=== PATIENT | female | born 1955 | race Caucasian/White ===

== ENCOUNTER 2018-06-08 11:54 | Emergency (ER) | payer MEDICAID ==
[~2018-06-08] VITALS: Ht 157.5 cm; Wt 61.1 kg
[2018-06-08 12:14] VITALS: BP 172/83; PULSE 82; RESP 18; Ht 157.5 cm; Wt 61.1 kg
[2018-06-08] MEDS ORDERED: ONDANSETRON (ODT) 4 MG TAB ODT STA (15:02)
[2018-06-08] MEDS ORDERED: MECLIZINE 12.5 MG TAB PO ONE (15:30)
[2018-06-08] MEDS ORDERED: MECL-77 PO (17:02)
[2018-06-08] MEDS ORDERED: ONDA4TAB14 PO (17:02)
--- NOTE | 2018-06-08 17:04 | ERD ---
ER Documentation Chief Complaint Chief Complaint states blood glucose 240 at home. ROS All systems reviewed and are negative except as per history of present illness. Medications Home Meds Active Scripts Ondansetron (Ondansetron Odt) 4 Mg Tab.rapdis, 4 MG PO Q6H PRN for NAUSEA AND/OR VOMITING, #15 TAB Prov:CASSANDRA ARIAS DO 06/08/18 Meclizine Hcl* (Meclizine Hcl*) 25 Mg Tablet, 12.5 MG PO Q8H PRN for DIZZINESS, #30 TAB Prov:CASSANDRA ARAIS DO 06/08/18 Allergies Allergies: Coded Allergies: No Known Allergy (Unverified , 06/08/18) PMhx/Soc Medical and Surgical Hx: pt denies Surgical Hx Hx Miscellaneous Medical Probl: Yes (DM,HTN) Hx Alcohol Use: No Hx Substance Use: No Hx Tobacco Use: No Smoking Status: Never smoker Physical Exam Vitals Vital Signs Date Temp Pulse Resp B/P (MAP) Pulse Ox O2 O2 Flow FiO2 Time Delivery Rate 06/08/18 98.4 82 18 172/83 96 12:14 (112) Physical Exam Const: No acute distress Head: Atraumatic Eyes: Normal Conjunctiva ENT: Normal External Ears, Nose and Mouth. Neck: Full range of motion. No meningismus. Resp: Clear to auscultation bilaterally Cardio: Regular rate and rhythm, no murmurs Abd: Soft, non tender, non distended. Normal bowel sounds Skin: No petechiae or rashes Back: No midline or flank tenderness Ext: No cyanosis, or edema Neur: Awake and alert Psych: Normal Mood and Affect Result Diagram: 06/08/18 1513 06/08/18 1513 Results 24 hrs Laboratory Tests Test 06/08/18 15:11 06/08/18 15:13 Bedside Glucose 207 mg/dL White Blood Count 7.0 10^3/ul Red Blood Count 4.48 10^6/ul Hemoglobin 13.9 g/dl Hematocrit 40.7 % Mean Corpuscular Volume 90.8 fl Mean Corpuscular Hemoglobin 31.0 pg Mean Corpuscular Hemoglobin Concent 34.2 g/dl Red Cell Distribution Width 11.8 % Platelet Count 304 10^3/UL Mean Platelet Volume 10.1 fl Immature Granulocytes % 0.300 % Neutrophils % 52.5 % Lymphocytes % 37.9 % Monocytes % 7.0 % Eosinophils % 2.0 % Basophils % 0.3 % Nucleated Red Blood Cells % 0.0 /100WBC Immature Granulocytes # 0.020 10^3/ul Neutrophils # 3.7 10^3/ul Lymphocytes # 2.7 10^3/ul Monocytes # 0.5 10^3/ul Eosinophils # 0.1 10^3/ul Basophils # 0.0 10^3/ul Nucleated Red Blood Cells # 0.0 10^3/ul Sodium Level 136 mmol/L Potassium Level 4.4 mmol/L Chloride Level 98 mmol/L Carbon Dioxide Level 28 mmol/L Anion Gap 10 Blood Urea Nitrogen 15 mg/dl Creatinine 0.34 mg/dl Est Glomerular Filtrat Rate mL/min > 60 mL/min Glucose Level 224 mg/dl Calcium Level 9.9 mg/dl Total Bilirubin 0.2 mg/dl Direct Bilirubin 0.00 mg/dl Indirect Bilirubin 0.2 mg/dl Aspartate Amino Transf (AST/SGOT) 18 IU/L Alanine Aminotransferase (ALT/SGPT) 13 IU/L Alkaline Phosphatase 111 IU/L Total Protein 8.0 g/dl Albumin 4.3 g/dl Globulin 3.70 g/dl Albumin/Globulin Ratio 1.16 Current Medications Medications Dose Sig/Curt Start Time Status Last (Trade) Ordered Route PRN Stop Time Admin Dose Reason Admin Meclizine 12.5 mg ONCE ONCE 06/08/18 DC 06/08/18 HCl PO 15:30 15:08 (Antivert) 06/08/18 15:31 Ondansetron 4 mg ONCE STAT 06/08/18 DC 06/08/18 HCl (Zofran ODT 15:02 15:08 Odt) 06/08/18 15:03 Departure Diagnosis: Primary Impression: Dizziness Additional Impression: Vomiting Vomiting type: unspecified Vomiting Intractability: unspecified Nausea presence: unspecified Qualified Codes: R11.10 - Vomiting, unspecified Condition: Fair Patient Instructions: Dizziness (Vertigo) and Balance Problems: Ensuring Your Safety, Vomiting (5Y-Adult) Referrals: COMM[facility]ITY [facility]IN[facility] YOU HAVE RECEIVED A MEDICAL SCREENING EXAM AND THE RESULTS INDICATE THAT YOU DO NOT HAVE A CONDITION THAT REQUIRES URGENT TREATMENT IN THE EMERGENCY DEPARTMENT. FURTHER EVALUATION AND TREATMENT OF YOUR CONDITION CAN WAIT UNTIL YOU ARE SEEN IN YOUR DOCTORS OFFICE WITHIN THE NEXT 1-2 DAYS. IT IS YOUR RESPONSIBILITY TO MAKE AN APPOINTMENT FOR FOLOW-UP CARE. IF YOU HAVE A PRIMARY DOCTOR --you should call your primary doctor and schedule an appointment IF YOU DO NOT HAVE A PRIMARY DOCTOR YOU CAN CALL OUR PHYSICIAN REFERRAL HOTLINE AT IF YOU CAN NOT AFFORD TO SEE A PHYSICIAN YOU CAN CHOSE FROM THE FOLLOWING [facility] [place] [address] [facility] [address] [facility] [facility] [address] [facility] [address] [facility] [address] [facility] [address] [facility] [address] [facility]. [facility] [address] Additional Instructions: Llame al doctor MAANA y james tatyana LUTHER PARA DENTRO DE 1-2 MELENDEZ.Dgale a la secretaria que nosotros le instruimos hacer esta luther.Avise o llame si cox condicin se empeora antes de la luther. Regresa aqui si peor o no mejor. CASSANDRA ARIAS DO Jun 08, 2018 17:04
== END 2018-06-08 17:16 | disposition home or self-care (01) ==
LOC: FTE 11:54
DX: R42 Dizziness and giddiness (principal); I10 Essential (primary) hypertension; R11.10 Vomiting, unspecified; E11.9 Type 2 diabetes mellitus without complications
CPT/HCPCS: 36415; 80053; 82962; 85025; Z7502; Z7610; 99283